=== PATIENT | female | born 1990 | race Caucasian/White ===

== ENCOUNTER → 2018-01-03 | Outpatient (CLI) | payer OTHER ==
--- NOTE | 2018-01-03 09:03 | NM ---
Nuclear medicine hepatobiliary scan. HISTORY: Pain. DOSAGE: The patient received 8 ounces of ensure plus and 5.2 mCi of Technetium 99m Choletec. FINDINGS: There is normal hepatic extraction. The gallbladder is seen by 15 minutes. There is bilia ry to bowel clearance by 30 minutes. Ejection fraction is 60%. IMPRESSION: 1. Normal hepatobiliary exam
== END | disposition home or self-care (01) ==
LOC: RADNMMAIN 06:52
PROVIDERS: ATTEND Internal Medicine
DX: R10.13 Epigastric pain (principal)
CPT/HCPCS: 78226; A9537

== ENCOUNTER → 2018-01-11 | Outpatient (CLI) | payer OTHER ==
--- NOTE | 2018-01-11 13:29 | ECHOF ---
Referral Reason:R06.00 Dyspnea MEASUREMENTS -------- HEIGHT: 165.1 cm WEIGHT: 63.5 kg BP: IVSd: 0.7 cm (0.6 - 1.1) LVIDd: 4.1 cm (3.9 - 5.3) LVPWd: 1.0 cm (0.6 - 1.1) IVSs: 1.0 cm LVIDs: 3.3 cm LVPWs: 1.1 cm LA Diam: 2.0 cm (2.7 - 3.8) RVIDd: 2.0 cm (< 3.3) LAESV Index (A-L): 19.33 ml/m Ao Diam: 2.9 cm (2.0 - 3.7) LA Diam: 2.6 cm (2.7 - 3.8) AV Cusp: 1.6 cm (1.5 - 2.6) EPSS: 0.3 cm MV E Jerry: 0.93 m/s MV DecT: 182 ms MV A Jerry: 0.65 m/s MV E/A Ratio: 1.44 RAP: 5.00 mmHg RVSP: 23.88 mmHg MV EF SLOPE: 111.39 mm/s (70 - 150) MV EXCURSION: 17.66 mm (> 18.000) FINDINGS -------- Sinus rhythm. This was a technically good study. LV size, wall thickness and systolic function are normal, with an EF greater than 55%. The left delilah tricular size is normal. The right ventricle is normal in size. The left atrial size is normal. The right atrial size is normal. The aortic valve is trileaflet, and appears structurally normal. No aortic stenosis or regurgitation. The mitral valve leaflets are mildly thickened. Mild mitral regurgitation is present. Mild tricuspid regurgitation present. There is no evidence of pulmonary hypertension. The right v entricular systolic pressure, as measured by Doppler, is 23.88mmHg. Trace/mild (physiologic) pulmonic regurgitation. The aortic root size is normal. There is no pericardial effusion. CONCLUSIONS -------- 1. LV size, wall thickness and systolic function are normal, with an EF greater than 55%. 2. The left ventricular size is normal. 3. The aortic valve is trileaflet, and appears structurally normal. No aortic stenosis or regurgitati on. 4. The mitral valve leaflets are mildly thickened. 5. Mild mitral regurgitation is present. 6. Mild tricuspid regurgitation present. 7. There is no evidence of pulmonary hypertension. 8. The right ventricular systolic pressure, as measured by Doppler, is 23.88mmHg. 9. Trace/mild (physiologic) pulmonic regurgitation. 10. The aortic root size is normal. 11. There is no pericardial effusion. KNIFE CUTTER: aMru Coronel RDCS
--- NOTE | 2018-01-11 19:20 | EST ---
EXERCISE STRESS AGE: 27 SEX: Female. HT: 5'5" WT: 140 PROTOCOL: Logan. STAGE: III DURATION OF EXERCISE: Ten minutes. HEART RATE REST: 71 BLOOD PRESSURE REST: 117/72 MAXIMUM HEART RATE ACHIEVED: 190 MAXIMUM BLOOD PRESSURE: 214/122 85% MPHR: 162 100% MPHR: 191 METS: 11.7 INDICATIONS: Atrial fibrillation. CLINICAL INFORMATION: This patient is a 27-year-old female with chest pain. Baseline heart rate 71 beats per minute. Baseline blood pressure 117/72 mmHg. Baseline 12-lead ECG shows normal sinus rhythm with early repolarization abnormality on the ST segments. Patient exercised on a Logan protocol for 10 minutes, achieving a peak heart rate of 190 beats per minute. Hypertensive response to exercise. Peak blood pressure was 214/122 mmHg. She was short of breath at peak exercise. There was no ECG evidence for ischemia. No arrhythmias were noted. IMPRESSION: Good exercise capacity. Possible hypertensive response to exercise. The patient needs to be re-evaluated. Possible exercise-related elevation in blood pressure. MMODL / IJN: [id number] /
== END | disposition home or self-care (01) ==
LOC: RADECHMAIN 08:08
PROVIDERS: ATTEND Internal Medicine
DX: I08.1 Rheumatic disorders of both mitral and tricuspid valves (principal)
CPT/HCPCS: 93017; 93306

== ENCOUNTER → 2018-04-03 | Outpatient (CLI) | payer OTHER | END | disposition home or self-care (01) | LOC: CPPFTMAIN 10:06 | PROVIDERS: ATTEND Internal Medicine Cardiovascular Disease | DX: R06.02 Shortness of breath (principal) | CPT/HCPCS: 94060; 94726; 94729 ==

== ENCOUNTER → 2019-05-02 | Outpatient (CLI) | payer OTHER ==
--- NOTE | 2019-05-02 15:26 | US ---
EXAMINATION TYPE: US kidneys/renal and bladder DATE OF EXAM: 05/02/2019 COMPARISON: US 12/14/17 CLINICAL HISTORY: N39.0 RECURRENT UTI. EXAM MEASUREMENTS: Right Kidney: 10.5 x 5.6 x 4.0 cm Left Kidney: 11.9 x 5.5 x 5.0 cm Post Void Residual Volume: 43.2 mL Right Kidney: No hydronephrosis or masses seen Left Kidney: No hydronephrosis or masses seen Bladder: wnl Bilateral Jets seen: Yes Normal Post Void Residual: Yes There is no evidence for hydronephrosis at this point in time. No nephrolithiasis is seen. No amanda s are identified. The urinary bladder is anechoic. Bilateral ureteral jets are seen. IMPRESSION: No hydronephrosis nor nephrolithiasis. Post void residual is upper limits of normal.
== END | disposition home or self-care (01) ==
LOC: RADUSWWP 14:55
PROVIDERS: ATTEND Urology
DX: N39.0 Urinary tract infection, site not specified (principal)
CPT/HCPCS: 76770

== ENCOUNTER 2019-08-09 17:53 | Emergency (ER) | payer OTHER ==
[2019-08-09 18:04] VITALS: BP 153/83; PULSE 92; RESP 20; TEMP 98.1
[2019-08-09] MEDS ORDERED: LIDOCAINE 1% INJ 10MG/ML (20 ML MDV) SQ STA (18:10)
[2019-08-09] MEDS ORDERED: DIPH,PERTUS(ACELL)TETVAC-LF 0.5 ML VIAL IM ONE (18:10)
--- NOTE | 2019-08-09 19:08 | ED ---
General Adult HPI - General Chief complaint: Wound/Laceration Stated complaint: Finger Lac Time Seen by Provider: 08/09/19 18:07 Source: patient, RN notes reviewed, old records reviewed Mode of arrival: ambulatory Limitations: no limitations - History of Present Illness Initial comments: 29-year-old female patient presents to ED for chief complaint of laceration to distal aspect of third digit of left hand. Patient reports that she was cutting a squash with a knife. Reports the knife was clean and new. Reports that the knife slipped cutting the tip of her finger. Does not know date of last tetanus. Denies all other complaints. Systemic: Pt denies fatigue, fever/chills, rash. Pt denies weakness, night sweats, weight loss. Neuro: Pt denies headache, visual disturbances, syncope or pre-syncope. HEENT: Pt denies ocular discharge or irritation, otalgia, rhinorrhea, pharyngitis or notable lymphadenopathy. Cardiopulmonary: Pt denies chest pain, SOB, heart palpitations, dyspnea on exertion. Abdominal/GI: Pt denies abdominal pain, n/v/d. : Pt denies dysuria, burning w/ urination, frequency/urgency. Denies new onset urinary or bowel incontinence. MSK: Pt denies myalgia, loss of strength or function in extremities. Neuro: Pt denies new onset weakness, paresthesias. - Related Data Allergies Allergy/AdvReac Type Severity Reaction Status Date / Time No Known Allergies Allergy Verified 08/09/19 18:02 Review of Systems ROS Statement: Those systems with pertinent positive or pertinent negative responses have been documented in the HPI. ROS Other: All systems not noted in ROS Statement are negative. Past Medical History Past Medical History: No Reported History History of Any Multi-Drug Resistant Organisms: None Reported Past Surgical History: No Surgical Hx Reported Past Psychological History: No Psychological Hx Reported Smoking Status: Never smoker Past Alcohol Use History: Occasional Past Drug Use History: None Reported General Exam - General Exam Comments Initial Comments: Constitutional: NAD, AOX3, Pt has pleasant affect. HEENT: NC/AT, trachea midline, neck supple, no lymphadenopathy. Posterior pharynx non erythematous, without exudates. External ears appear normal, without discharge. Mucous membranes moist. Eyes PERRLA, EOM intact. There is no scleral icterus. No pallor noted. Cardiopulmonary: RRR, no murmurs, rubs or gallops, no JVD noted. Lungs CTAB in anterior and posterior rausch. No peripheral edema. Abdominal exam: Abdomen soft and non-distended. Abdomen non-tender to palpation in all 4 quadrants. Bowel sounds active in LLQ. No hepatosplenomegaly. No ecchymosis Neuro: CN II-XII grossly intact. No nuchal rigidity. No raccon eyes, no foster sign, no hemotympanum. No cervical spinal tenderness. MSK: 1.5 cm laceration distal aspect tip of third digit of left hand. Sensation intact of digit. Full active range of motion. Vigorously irrigated. Approximated with 4 simple interrupted sutures. Neurovascularly intact. No posterior calf tenderness bilaterally, homans sign negative bilaterally. Posterior tibialis and radial pulse +2 bilaterally. Sensation intact in upper and lower extremities. Full active ROM in upper and lower extremities, 5/5 stregnth. Limitations: no limitations Course Vital Signs 08/09/19 18:00 Temperature 98.1 F Pulse Rate 92 Respiratory 20 Rate Blood Pressure 153/83 O2 Sat by Pulse 100 Oximetry Procedures - Laceration Laceration #1 Consent Obtained: verbal consent Indication: laceration Site: hand (3rd digit L hand ) Size (cm): 1 (1.5) Depth: simple, single layer (no ligamentous, bone involvement. No foreign body. ) Anesthetic Used: lidocaine 1% Anesthesia Technique: local infiltration Amount (mls): 2 Pre-repair: wound explored, irrigated extensively Type of Sutures: nylon Size of Sutures: 5-0 Number of Sutures: 4 Technique: simple, interrupted Patient Tolerated Procedure: well, no complications Medical Decision Making - Medical Decision Making 29-year-old female patient presents to the chief complaint of laceration to tip of third digit of left hand. Patient vital signs are stable, afebrile. Physical exam revealed a 1.5 cm laceration. Vigorously irrigated approximated with 4 simple interrupted sutures. Patient declined plain films of hand. Reports that knife did not break. Tetanus updated. Will discharge with return precautions. Case discussed with Dr. Nevarez Disposition Clinical Impression: Laceration Disposition: HOME SELF-CARE Condition: Stable Instructions (If sedation given, give patient instructions): Laceration (ED), Care For Your Stitches (ED) Additional Instructions: Follow-up with primary care provider in 1-2 days. Please return for suture removal: Hand: 7-10 days Face: 5 days Chest/abdomen: 12-14 days Extremities: 7-10 days Scalp: 7 days Eyebrow: 5-7 days Foot/sole: 12-14 days Please monitor for signs and symptoms of infection including: redness, warmth, drainage, discharge. Please return to ED if these signs or symptoms occur, new signs or symptoms dev elop or if condition worsens in anyway. Is patient prescribed a controlled substance at d/c from ED?: No Referrals: Emanuel Velazquez MD [Primary Care Provider] - 1-2 days
== END 2019-08-09 19:10 | disposition home or self-care (01) ==
LOC: EC 17:53
DX: S61.213A Laceration without foreign body of left middle finger without damage to nail, initial encounter (principal); Z23 Encounter for immunization; W26.0XXA Contact with knife, initial encounter; Y93.89 Activity, other specified
CPT/HCPCS: 90715; 99283; 12001; 90471; J2001

== ENCOUNTER 2021-03-11 01:20 | Inpatient (IN) | payer OTHER ==
[2021-03-11] MEDS ORDERED: OXYTOCIN 10 UNIT/ML 1 ML VIAL IM PRN (02:02)
[2021-03-11] MEDS ORDERED: TERBUTALINE 1 MG/ML VIAL SQ PRN (02:02)
[2021-03-11] MEDS ORDERED: LIDOCAINE 0.5% (PF) 5 MG/ML (50 ML SDV) SQ PRN (02:02)
[2021-03-11] MEDS ORDERED: METHYLERGONOVINE 0.2 MG/ML 1 ML AMP IM PRN (02:02)
[2021-03-11] MEDS ORDERED: CARBOPROST TROMETHAMINE 250 MCG/ML 1 ML AMP IM PRN (02:02)
[2021-03-11] MEDS: LACTATED RINGERS 1,000 ML IV SCH ×3 (02:30→10:17)
[2021-03-11 02:32] LABS: Basophils % (A) 0 %; Eosinophils # (A) 0.1 k/uL (0-0.7); Eosinophils % (A) 1 %; HCT 33.2 % (34.0-46.0); HGB 10.9 gm/dL (11.4-16.0); Lymphocytes # (A) 1.6 k/uL (1.0-4.8); Lymphocytes % (A) 17 %; MCH 30.3 pg (25.0-35.0); MCHC 32.9 g/dL (31.0-37.0); Mean Platelet Volume 7.4; Monocytes # (A) 0.5 k/uL (0-1.0); Monocytes % (A) 5 %; Neutrophils # (A) 6.9 k/uL (1.3-7.7); Neutrophils % (A) 73 %; Platelet Count 277 k/uL (150-450); RBC 3.61 m/uL (3.80-5.40); RDW 13.5 % (11.5-15.5); WBC 9.5 k/uL (3.8-10.6)
[2021-03-11] MEDS ORDERED: BUTORPHANOL 1 MG/ML 1 ML VIAL IV PRN (05:26)
[2021-03-11] MEDS ORDERED: OXYTOCIN 30 UNITS/500 ML NS 30 UNIT in SALINE 1 500ML.BAG IV SCH (05:45)
[2021-03-11] MEDS ORDERED: fentaNYL (PF) 50 MCG/ML 5 ML AMP ONE (10:05)
[2021-03-11] MEDS ORDERED: SODIUM CHLORIDE 0.9% 100 ML BAG ONE (10:05)
[2021-03-11] MEDS ORDERED: ROPIVACAINE 5MG/ML 20ML VIAL ONE (10:05)
[2021-03-11] MEDS ORDERED: ROPIVACAINE 100 MG, fentaNYL (PF). 200 MCG in SODIUM CHLORIDE 0.9% 76 ML EPIDURAL ONE (10:28)
[2021-03-11] MEDS ORDERED: diphenhydrAMINE 25 MG CAP PO PRN (13:46)
[2021-03-11] MEDS ORDERED: diphenhydrAMINE 50 MG/ML 1 ML VIAL IVP PRN ×2 (13:46)
[2021-03-11] MEDS ORDERED: diphenhydrAMINE 50 MG CAP PO PRN (13:46)
[2021-03-11] MEDS ORDERED: BENZOCAINE/MENTHOL SPRAY 1 GM/SPRAY AEROSOL TOPICAL PRN (13:46)
[2021-03-11] MEDS ORDERED: LANOLIN CREAM 5 GM TUBE TOPICAL PRN (13:46)
[2021-03-11] MEDS ORDERED: HYDROCORTISONE 2.5% RECTAL CREAM 30 GM TUBE RECTAL PRN (13:46)
[2021-03-11] MEDS ORDERED: ZOLPIDEM 5 MG TAB PO PRN (13:46)
[2021-03-11] MEDS ORDERED: SIMETHICONE 80 MG CHEWABLE PO PRN (13:46)
--- NOTE | 2021-03-11 13:50 | P.PROBDLV ---
Vaginal Delivery Note - . Vaginal Delivery Note: 30-year-old at 40 and one sevenths weeks that presented to labor and delivery with spontaneous rupture of membranes, clear in nature just after midnight. Patient presented to labor and delivery and was admitted. Patient made minimal change throughout the rn enterostomal therefore Pitocin augmentation of labor was begun. Patient quickly became uncomfortable and did request epidural placement. Epidural was placed without difficulty by the anesthesia department. Patient progressed to complete began pushing and had a normal spontaneous vaginal delivery of viable male infant at 1325, Apgars of 9 and 9 at one and 5 minutes respectfully. A loose nuchal cord was noted at delivery, delivered through. After two-minute delay the umbilical cord was doubly clamped and cut and the infant was handed to the maternal abdomen. The placenta was then delivered spontaneously intact with a three-vessel cord being noted. On inspection the patient's vaginal vault a second-degree vaginal laceration was appreciated. This was repaired in the usual fashion with 3-0 Rapide. Hemostasis was appreciated after repair. The uterus is noted to be firm and below the umbilicus after delivery. Estimated blood loss 300 mL. Patient and infant tolerated delivery well and are resting comfortably.
[2021-03-11 16:15] LABS: Glucose,Whole Blood 83 mg/dL (75-99)
[2021-03-11] MEDS ORDERED: ACETAMINOPHEN IV (For NPO) 1,000 MG in EMPTY BAG 1 BAG IVPB STA (17:56)
[2021-03-11] MEDS: IBUPROFEN 600 MG TAB PO SCH ×2 (18:36→19:33)
[2021-03-11] MEDS: SENNOSIDES-DOCUSATE SODIUM 1 EACH TAB PO SCH (19:32)
[2021-03-11] MEDS ORDERED: MEASLES-MUMPS-RUBELLA VACC/PF 12,500 UNIT/0.5 ML VIAL SQ ONE (20:54)
[2021-03-12] MEDS: IBUPROFEN 600 MG TAB PO SCH ×4 (01:51→19:38)
[2021-03-12 06:20] LABS: Basophils % (A) 0 %; Eosinophils # (A) 0.1 k/uL (0-0.7); Eosinophils % (A) 1 %; HCT 25.7 % (34.0-46.0); Lymphocytes # (A) 1.1 k/uL (1.0-4.8); Lymphocytes % (A) 10 %; MCHC 35.1 g/dL (31.0-37.0); MCV 91.1 fL (80.0-100.0); Mean Platelet Volume 8.8; Monocytes # (A) 0.5 k/uL (0-1.0); Monocytes % (A) 5 %; Neutrophils # (A) 8.8 k/uL (1.3-7.7); Neutrophils % (A) 82 %; Platelet Count 222 k/uL (150-450); RBC 2.82 m/uL (3.80-5.40); RDW 13.3 % (11.5-15.5); WBC 10.8 k/uL (3.8-10.6)
--- NOTE | 2021-03-12 08:02 | P.PNOBGVD ---
Subjective - Subjective Principal diagnosis: PPD 1 , maternal fever Interval history: Patient did well overnight, maternal fever was noted after delivery, Kefzol 2gm IV Every 8 was begun for 24 Hours Given Her Elevated Temperature. Lochia Is minimal. Breast feeding is going well. She denies discomfort. She states she is tolerating a regular diet without nausea or vomiting. Patient reports: Reports appetite normal, Reports voiding normally, Reports pain well controlled, Reports ambulating normally : doing well, nursing well Objective - Latest Vital Signs Latest vital signs: Vital Signs Temp Pulse Resp BP Pulse Ox 03/12/21 04:00 98.3 F 03/11/21 23:48 99.0 F 89 16 115/68 03/11/21 19:47 99.8 F H 104 H 16 119/74 03/11/21 17:30 100.2 F H 111 H 18 144/76 97 03/11/21 15:45 98.8 F 104 H 18 140/62 99 03/11/21 15:15 90 120/72 03/11/21 14:45 98.6 F 84 18 122/67 99 03/11/21 14:30 94 123/72 03/11/21 14:15 88 18 122/71 03/11/21 14:00 100 18 103/65 03/11/21 13:45 93 18 133/74 Intake and Output 03/11/21 03/12/21 03/12/21 22:59 06:59 14:59 Other: # Voids 1 1 - Exam Extremities: Present: normal Abdomen: Present: normal appearance, soft Uterus: Present: normal, firm - Labs Labs: Abnormal Lab Results - Last 24 Hours (Table) 03/12/21 Range/Units 06:08 WBC 10.8 H (3.8-10.6) k/uL RBC 2.82 L (3.80-5.40) m/uL Hgb 9.0 L D (11.4-16.0) gm/dL Hct 25.7 L (34.0-46.0) % Neutrophils # 8.8 H (1.3-7.7) k/uL Assessment and Plan (1) Post-dates Current Visit: Yes Status: Acute Code(s): O48.0 - POST-TERM SNOMED Code(s): 38282008 (2) SROM (spontaneous rupture of membranes) Current Visit: Yes Status: Acute Code(s): UMJ6852 - SNOMED Code(s): 209195291 Plan: Patient is day 1 status post normal spontaneous vaginal delivery and doing well overall. Maternal fever was appreciated therefore Kefzol was started for 24 hours. Will continue observation today and anticipate discharge home tomorrow para
[2021-03-12] MEDS: SENNOSIDES-DOCUSATE SODIUM 1 EACH TAB PO SCH ×2 (08:10→19:40)
[2021-03-12 08:38] LABS: HCT 25.6 % (34.0-46.0); MCHC 35.2 g/dL (31.0-37.0); MCV 90.9 fL (80.0-100.0); Platelet Count 230 k/uL (150-450); RBC 2.81 m/uL (3.80-5.40); RDW 13.3 % (11.5-15.5)
[2021-03-12] MEDS ORDERED: PRENATAL VIT-IRON-FOLIC ACID 1 EACH CAP PO SCH (09:00)
--- NOTE | 2021-03-12 10:19 | P.HPOB ---
History of Present Illness H&P Date: 03/11/21 Chief Complaint: IUP at 41, spontaneous rupture of membranes This is a 30-year-old at 40 and one sevenths weeks that presents to labor and delivery with complaints of spontaneous rupture of membranes just after midnight. Patient notes fluid to be clear. Patient was having irregular contractions at that time. Patient notes good movement denies vaginal bleeding. Patient has been receiving routine care which has been essentially uncomplicated. Review of Systems Constitutional: Denies chills, Denies fatigue, Denies fever Ears, nose, mouth and throat: Denies headache Cardiovascular: Reports leg edema Respiratory: Denies dyspnea Gastrointestinal: Denies constipation, Denies diarrhea, Denies nausea, Denies vomiting Genitourinary: Reports Past Medical History Past Medical History: No Reported History History of Any Multi-Drug Resistant Organisms: None Reported Past Surgical History: No Surgical Hx Reported Additional Past Surgical History / Comment(s): D/C Past Psychological History: No Psychological Hx Reported Smoking Status: Never smoker Past Alcohol Use History: Occasional Past Drug Use History: None Reported - Past Family History Father Family Medical History: No Reported History Medications and Allergies Home Medications Medication Instructions Recorded Confirmed Type Pnv No.95/Ferrous Fum/Folic AC 1 each PO DAILY 03/11/21 03/11/21 History [ Multivitamin Tablet] Allergies Allergy/AdvReac Type Severity Reaction Status Date / Time No Known Allergies Allergy Verified 03/11/21 01:53 Exam Osteopathic Statement: *. No significant issues noted on an osteopathic structural exam other than those noted in the History and Physical/Consult. 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 Results Result Diagrams: 03/11/21 02:16 Abnormal Lab Results - Last 24 Hours (Table) 03/11/21 Range/Units 02:16 RBC 3.61 L (3.80-5.40) m/uL Hgb 10.9 L (11.4-16.0) gm/dL Hct 33.2 L (34.0-46.0) % Assessment and Plan (1) Post-dates Current Visit: Yes Status: Acute Code(s): O48.0 - POST-TERM SNOMED Code(s): 31090600 (2) SROM (spontaneous rupture of membranes) Current Visit: Yes Status: Acute Code(s): NDL6619 - SNOMED Code(s): 501653839 Plan: 30-year-old at 40 1/7 weeks that presents to labor and delivery with complaints of spontaneous rupture of membranes. Patient is admitted to labor and delivery. After several hours of minimal contractions were noted therefore Pitocin augmentation of labor was begun at 6 AM. Patient is noting regular contractions since Pitocin was begun. Patient does request epidural placement. Anesthesia will be notified.
[2021-03-12] MEDS: ACETAMINOPHEN TAB 325 MG TAB PO PRN (20:55)
[2021-03-13] MEDS: IBUPROFEN 600 MG TAB PO SCH (01:23)
[2021-03-13] MEDS: ACETAMINOPHEN TAB 325 MG TAB PO PRN (05:42)
[2021-03-13 08:37] VITALS: BP 123/72; PULSE 85; RESP 14; TEMP 98.2
--- NOTE | 2021-03-13 10:11 | P.DS ---
Providers Date of admission: 03/11/21 01:52 Expected date of discharge: 03/13/21 Attending physician: Kathy Graham Primary care physician: Stated None - Discharge Diagnosis(es) (1) Normal spontaneous vaginal delivery Current Visit: Yes Status: Acute Hospital Course: The patient is a 30-year-old 2 para 0010 admitted at 40 and one sevenths weeks by good dating parameters. She is admitted with documented spontaneous rupture of membranes with clear fluid. Her was uncomplicated and group B strep status is negative. On labor and delivery, she had Pitocin started and progressed to have an upper catheter placed for analgesia. She then also a progress to complete and pushed to a normal spontaneous vaginal delivery of a viable 7 lbs. 4 oz. baby boy with Apgars of 9 at 1 minute and 9 at 5. Her course was unremarkable with vital signs remained stable and her temperature was afebrile throughout. She was deemed stable for discharge on day #2 was discharged home to follow-up in the office in 6 weeks' time routinely. Discharge instructions included calling for any significantly increased bleeding or foul-smelling lochia, significantly increased fever abdominal pain, perineal complaints, breast complaints, or anything also concerned her. She was additionally instructed to have nothing in the vagina for at least 6 weeks time to include intercourse. She understood her instructions and agrees to follow-up as noted above. Discharge medications included continued vitamins as she has opted to breast-feed. She is otherwise to use [id number] analgesic pain medications as needed. Maternal blood type is Rh+ and rubella status is immune. Procedures: 1. Pitocin augmentation of her 2. Epidural analgesia #3. Normal spontaneous vaginal delivery #4. Repair of perineal laceration Patient Condition at Discharge: Stable Plan - Discharge Summary New Discharge Prescriptions: No Action Pnv No.95/Ferrous Fum/Folic AC [ Multivitamin Tablet] 1 each PO DAILY Discharge Medication List Pnv No.95/Ferrous Fum/Folic AC [ Multivitamin Tablet] 1 each PO DAILY 03/11/21 [History] Follow up Appointment(s)/Referral(s): Kathy Graham DO [Doctor of Osteopathic Medicine] - 6 Weeks Discharge Disposition: HOME SELF-CARE
[2021-03-13] MEDS: SENNOSIDES-DOCUSATE SODIUM 1 EACH TAB PO SCH (11:36)
== END 2021-03-13 12:40 | disposition home or self-care (01) | DRG 806 ==
LOC: FBPOP 01:20 → 4FBP 01:52
PROVIDERS: ADMIT Obstetrics & Gynecology; ATTEND Obstetrics & Gynecology Obstetrics
PROC: 10E0XZZ Delivery of Products of Conception, External Approach (ICD-10-PCS; principal; 2021-03-11)
PROC: 0KQM0ZZ Repair Perineum Muscle, Open Approach (ICD-10-PCS; 2021-03-11)
PROC: 3E0S3BZ Introduction of Anesthetic Agent into Epidural Space, Percutaneous Approach (ICD-10-PCS; 2021-03-11)
DX: O48.0 Post-term pregnancy (principal); O86.4 Pyrexia of unknown origin following delivery; Z37.0 Single live birth; Z3A.40 40 weeks gestation of pregnancy; O70.1 Second degree perineal laceration during delivery; O69.81X0 Labor and delivery complicated by cord around neck, without compression, not applicable or unspecified
CPT/HCPCS: 59025; 84112; 85025; 85027; 86850; 86900; 86901; 90707; 99213

== ENCOUNTER 2023-03-22 21:35 | Outpatient (CLI) | payer BC ==
[2023-03-22 22:15] VITALS: BP 129/79; PULSE 78; RESP 16; TEMP 97.4
--- NOTE | 2023-04-12 18:22 | P.MSEPDOC ---
Presenting Problems - Arrival Data Date of Arrival on Unit: 03/22/23 Time of Arrival on Unit: 21:35 Mode of Transport: Wheelchair - Complaint OB-Reason for Admission/Chief Complaint: Pain Comment: lower back pain coming and going Medical History - Information : 3 Para: 1 Term: 1 : 0 Abortions: Spontaneous or Elective: 1 Number of Living Children: 1 - Gestational Age Gestational Age by ROSANGELA (wks/days): 39 Weeks and 0 Days Review of Systems - Review of Systems Constitutional: No problems Breast: No problems ENT: No problems Cardiovascular: No problems Respiratory: No problems Gastrointestinal: No problems Genitourinary: No problems Musculoskeletal: No problems Neurological: No problems Skin: No problems Vital Signs - Temperature Temperature: 97.4 F Temperature Source: Temporal Artery Scan - Pulse Supine Brachial Pulse Rate: 78 Pulse Assessment Method: Automatic Cuff - Respirations Respiratory Rate: 16 Oxygen Delivery Method: Room Air O2 Sat by Pulse Oximetry: 96 - Blood Pressure Right Arm Supine Blood Pressure: 129/79 Blood Pressure Mean: 95 Blood Pressure Source: Automatic Cuff Medical Screen Scoring - Cervical Exam Dilation (cm): 1 Effacement (%): 60 Station: -3 Membranes: Intact - Assessment - Baby A Baseline FHR: 140 Heart Rate - NICHD Category: Category I (Normal) NST: Reactive Physician Notification - Physician Notified Physician Notified Date: 03/22/23 Physician Notified Time: 22:05 Physician: Dr Graham New Order Received: Yes (Wait 1 hour and re-check then if no change may d ischarge) Maternal Triage Index - Maternal Triage Index Presenting for scheduled procedure w/no complaint: No - Stat/Priority 1 Stat Priority 1: No - Urgent/Priority 2 Urgent Priority 2: No - Prompt/Priority 3 Prompt Priority 3: No - Non-Urgent/Priority 4 Non-Urgent Priority 4: Yes Criteria Met for Priority 4: Back pain. common discomfort of Disposition - Disposition OB Disposition: Triage Discharge Date: 03/22/23 Discharge Time: 22:48 I agree with the RN Medical Screening Exam: Yes Case reviewed; plan agreed upon as documented in EMR&OBIX.: Yes Diagnosis: RELATED CONDITIONS, UNSPECIFIED, THIRD TRIMESTER
== END 2023-03-22 22:48 | disposition home or self-care (01) ==
LOC: FBPOP 21:35
PROVIDERS: ATTEND Obstetrics & Gynecology Obstetrics
DX: O26.893 Other specified pregnancy related conditions, third trimester (principal); R52 Pain, unspecified; Z3A.39 39 weeks gestation of pregnancy; Z88.8 Allergy status to other drugs, medicaments and biological substances
CPT/HCPCS: 59025; 99213

== ENCOUNTER 2023-04-06 21:02 | Inpatient (IN) | payer BC ==
[2023-04-06] MEDS ORDERED: CARBOPROST TROMETHAMINE 250 MCG/ML 1 ML AMP IM PRN (23:43)
[2023-04-06] MEDS ORDERED: LIDOCAINE 0.5% (PF) 5 MG/ML (50 ML SDV) SQ PRN (23:43)
[2023-04-06] MEDS ORDERED: OXYTOCIN 10 UNIT/ML 1 ML VIAL IM PRN (23:43)
[2023-04-06] MEDS ORDERED: TERBUTALINE 1 MG/ML VIAL SQ PRN (23:43)
[2023-04-06] MEDS ORDERED: miSOPROStoL 200 MCG TAB PO PRN (23:43)
[2023-04-06] MEDS ORDERED: METHYLERGONOVINE 0.2 MG/ML 1 ML AMP IM PRN (23:43)
[2023-04-06] MEDS ORDERED: TRANEXAMIC 1,000 MG/100ML-NACL 1,000 MG in EMPTY BAG 1 BAG IV PRN (23:43)
[2023-04-06] MEDS: LACTATED RINGERS 1,000 ML IV SCH (23:45)
[2023-04-07 00:34] LABS: Basophils % (A) 0 %; Eosinophils % (A) 1 %; HCT 31.1 % (34.0-46.0); HGB 10.9 gm/dL (11.4-16.0); Lymphocytes # (A) 1.7 k/uL (1.0-4.8); Lymphocytes % (A) 20 %; MCH 31.8 pg (25.0-35.0); MCHC 35.2 g/dL (31.0-37.0); MCV 90.4 fL (80.0-100.0); Mean Platelet Volume 8.1; Monocytes # (A) 0.4 k/uL (0-1.0); Monocytes % (A) 5 %; Neutrophils # (A) 6.1 k/uL (1.3-7.7); Neutrophils % (A) 73 %; Platelet Count 206 k/uL (150-450); RBC 3.44 m/uL (3.80-5.40); RDW 13.9 % (11.5-15.5); WBC 8.5 k/uL (3.8-10.6)
[2023-04-07] MEDS ORDERED: fentaNYL (PF) 50 MCG/ML 5 ML AMP ONE (03:45)
[2023-04-07] MEDS ORDERED: SODIUM CHLORIDE 0.9% 100 ML BAG ONE (03:45)
[2023-04-07] MEDS ORDERED: ROPIVACAINE 5 MG/ML 20 ML AMPULE ONE (03:45)
[2023-04-07] MEDS: LACTATED RINGERS 1,000 ML IV SCH ×2 (03:45→04:57)
--- NOTE | 2023-04-07 07:40 | P.HPOB ---
History of Present Illness H&P Date: 04/07/23 Chief Complaint: IUP at 41-2/7 weeks, active labor This is a 32-year-old 3 para 1011 at 41-2/7 weeks that presents to labor and delivery with complaints of regular painful contractions. Estimated due date of 03/29 based on last menstrual period and consistent with 8 week ultrasound. Patient states contractions began around 2100 last evening. Patient denied vaginal bleeding or loss of fluid. Patient has been receiving routine care with myself which has been essentially uncomplicated. On bloodwork this patient is a blood type of AB+, rubella status nonimmune, hepatitis B surface antigen negative, HIV negative, RPR is nonreactive, group beta strep cultures negative. Review of Systems Constitutional: Denies chills, Denies fatigue, Denies fever Ears, nose, mouth and throat: Denies headache Cardiovascular: Reports leg edema Respiratory: Denies dyspnea Gastrointestinal: Denies constipation, Denies diarrhea, Denies nausea, Denies vomiting Genitourinary: Reports Past Medical History Past Medical History: No Reported History Additional Past Medical History / Comment(s): D&C 2007 History of Any Multi-Drug Resistant Organisms: None Reported Past Surgical History: No Surgical Hx Reported Additional Past Surgical History / Comment(s): D/C Past Psychological History: No Psychological Hx Reported Smoking Status: Never smoker Past Alcohol Use History: Occasional Additional Past Alcohol Use History / Comment(s): No alcohol use during Past Drug Use History: None Reported - Past Family History Father Family Medical History: No Reported History Medications and Allergies Home Medications Medication Instructions Recorded Confirmed Type Pnv No.95/Ferrous Fum/Folic AC 1 each PO DAILY 03/11/21 04/06/23 History [ Multivitamin Tablet] Cephalexin [Keflex] 250 mg PO Q8HR PRN 03/22/23 04/06/23 History Allergies Allergy/AdvReac Type Severity Reaction Status Date / Time butorphanol [From Stadol] Allergy Hallucinati Verified 03/22/23 21:50 ons Exam Osteopathic Statement: *. No significant issues noted on an osteopathic structural exam other than those noted in the History and Physical/Consult. Vital Signs Temp Pulse Resp BP Pulse Ox 04/06/23 23:40 98.0 F 85 16 113/79 97 04/06/23 21:04 98.8 F 107 H 16 127/86 98 Intake and Output 04/06/23 04/07/23 04/07/23 22:59 06:59 14:59 Output Total 150 Balance -150 Output: Urine 150 Other: Weight 90.718 kg 90.718 kg Targeted physical exam is performed on this date in general this a well- nourished well-developed female comfortable with epidural. Patient received an epidural overnight. Breathing is noted to be nonlabored, heart has a regular rate and rhythm, abdomen is gravid, on cervical exam she is denying, 100, -1 with a bulging bag of water, amniotomy is performed and clear fluid is obtained, heart tones are noted to be category 1 she is po every 2 minutes. Results Result Diagrams: 04/06/23 23:34 Abnormal Lab Results - Last 24 Hours (Table) 04/06/23 Range/Units 23:34 RBC 3.44 L (3.80-5.40) m/uL Hgb 10.9 L (11.4-16.0) gm/dL Hct 31.1 L (34.0-46.0) % Assessment and Plan (1) Post-dates Current Visit: No Status: Acute Code(s): O48.0 - POST-TERM SNOMED Code(s): 78145127 Plan: 32-year-old at 41-2/7 weeks presents in active labor. Patient currently is comfortable with epidural. Anticipate spontaneous vaginal delivery
[2023-04-07] MEDS ORDERED: diphenhydrAMINE 50 MG CAP PO PRN (09:16)
[2023-04-07] MEDS ORDERED: ZOLPIDEM 5 MG TAB PO PRN (09:16)
[2023-04-07] MEDS ORDERED: SIMETHICONE 80 MG CHEWABLE PO PRN (09:16)
[2023-04-07] MEDS ORDERED: HYDROCORTISONE 2.5% RECTAL CREAM 30 GM TUBE RECTAL PRN (09:16)
[2023-04-07] MEDS ORDERED: diphenhydrAMINE 50 MG/ML 1 ML VIAL IVP PRN ×2 (09:16)
[2023-04-07] MEDS ORDERED: diphenhydrAMINE 25 MG CAP PO PRN (09:16)
[2023-04-07] MEDS ORDERED: LANOLIN CREAM 5 GM TUBE TOPICAL PRN (09:16)
--- NOTE | 2023-04-07 09:20 | P.PROBDLV ---
Vaginal Delivery Note - . Vaginal Delivery Note: Findings: Viable male infant 8 lbs. 1 oz. delivery time of 852 32-year-old presented in labor and delivery last evening at 41-2/7 weeks with complaints of regular painful contractions. Patient was admitted and made slow progress through the evening. Patient had request epidural through the night. Patient was comfortable this morning. On initial exam for myself she was noted to be 9 cm with a bulging bag of water. Amniotomy was performed and clear fluid was obtained. Patient progressed toward complete and began pushing. With excellent maternal effort brought the infant down to presentation. With additional pushes the anterior and posterior shoulder were delivered followed by the body. Spontaneous cry was noted at . The infant was handed to the maternal abdomen. After two-minute delayed the umbilical cord was doubly clamped and cut. The placenta was delivered spontaneous intact with a three-vessel cord being noted. No vaginal lacerations were appreciated. Patient and tolerated delivery well. Estimated blood loss 100 mL. All counts were noted to be correct 2 at the delivery.
[2023-04-07] MEDS: IBUPROFEN 600 MG TAB PO SCH ×3 (11:51→19:45)
[2023-04-07] MEDS ORDERED: MEASLES-MUMPS-RUBELLA VACC/PF 12,500 UNIT/0.5 ML VIAL SQ ONE (12:34)
[2023-04-07] MEDS: ACETAMINOPHEN TAB 325 MG TAB PO PRN ×2 (16:22→23:31)
[2023-04-07] MEDS: SENNOSIDES-DOCUSATE SODIUM 1 EACH TAB PO SCH (19:46)
[2023-04-08] MEDS: IBUPROFEN 600 MG TAB PO SCH ×2 (01:55→09:32)
[2023-04-08] MEDS: LACTATED RINGERS 1,000 ML IV SCH (03:49)
[2023-04-08] MEDS: ACETAMINOPHEN TAB 325 MG TAB PO PRN (04:39)
[2023-04-08] MEDS ORDERED: PRENATAL VIT-IRON-FOLIC ACID 1 EACH TABLET PO SCH (09:00)
--- NOTE | 2023-04-08 09:09 | P.DS ---
Providers Date of admission: 04/06/23 23:10 Expected date of discharge: 04/08/23 Attending physician: Kathy Graham Primary care physician: Stated None - Discharge Diagnosis(es) (1) Normal spontaneous vaginal delivery Current Visit: No Status: Acute (2) Post-dates Current Visit: No Status: Acute (3) SROM (spontaneous rupture of membranes) Current Visit: No Status: Acute Hospital Course: This is a 32-year-old 3 now para 2012 woman who is admitted at 41-2/7 weeks in the spontaneous active labor. She had an uncomplicated . Following admission she received an epidural anesthetic. She had slow progression of labor to 9 cm dilated. Amniotomy was performed at that time and she progressed to complete cervical dilation. She had a rapid second stage of labor to deliver a liveborn male weighing 8 lbs. 1 oz. with Apgars of 8 at 1 minute and 9 at 5 minutes. The patient's course was unremarkable. By day #1 she was ambulating and voiding without difficulty and her pain was well-controlled. Her vital signs were stable. Her lochia was decreasing and she is breast-feeding successfully. She was therefore discharged home on day #1 with routine instructions for care and follow-up. Procedures: Normal spontaneous vaginal delivery Patient Condition at Discharge: Good Plan - Discharge Summary New Discharge Prescriptions: New Ibuprofen [Motrin] 600 mg PO Q6H tab Acetaminophen Tab [Tylenol] 650 mg PO Q4HR PRN tab PRN Reason: Mild Pain Or Fever >= 100.5 Continue Pnv No.95/Ferrous Fum/Folic AC [ Multivitamin Tablet] 1 each PO DAILY Discontinued Cephalexin [Keflex] 250 mg PO Q8HR PRN PRN Reason: After intercourse Discharge Medication List Pnv No.95/Ferrous Fum/Folic AC [ Multivitamin Tablet] 1 each PO DAILY 03/11/21 [History] Acetaminophen Tab [Tylenol] 650 mg PO Q4HR PRN tab 04/08/23 [Rx] Ibuprofen [Motrin] 600 mg PO Q6H tab 04/08/23 [Rx] Follow up Appointment(s)/Referral(s): Kathy Graham DO [Doctor of Osteopathic Medicine] - 4 Weeks Activity/Diet/Wound Care/Special Instructions: Follow-up in the office in 6 weeks . Call with any concerning signs or symptoms including heavy vaginal bleeding, severe abdominal pain, fever greater than 101, swelling or redness of the lower extremities, foul vaginal discharge, or signs of depression. Nothing in the vagina for 6 weeks after delivery, specifically no intercourse. Discharge Disposition: HOME SELF-CARE
[2023-04-08] MEDS: SENNOSIDES-DOCUSATE SODIUM 1 EACH TAB PO SCH (09:32)
[2023-04-08 09:39] VITALS: BP 127/77; PULSE 86; RESP 14; TEMP 97.8
== END 2023-04-08 13:50 | disposition home or self-care (01) | DRG 807 ==
LOC: FBPOP 21:02 → 4FBP 23:10
PROVIDERS: ADMIT Obstetrics & Gynecology; ATTEND Obstetrics & Gynecology Obstetrics
PROC: 10E0XZZ Delivery of Products of Conception, External Approach (ICD-10-PCS; principal; 2023-04-07)
PROC: 10907ZC Drainage of Amniotic Fluid, Therapeutic from Products of Conception, Via Natural or Artificial Opening (ICD-10-PCS; 2023-04-07)
DX: O42.92 Full-term premature rupture of membranes, unspecified as to length of time between rupture and onset of labor (principal); Z37.0 Single live birth; O48.0 Post-term pregnancy; Z3A.41 41 weeks gestation of pregnancy; Z88.8 Allergy status to other drugs, medicaments and biological substances
CPT/HCPCS: 59025; 85025; 86850; 86900; 86901; 90707; 99213